=== PATIENT | male | born 1990 | race Caucasian/White ===

== ENCOUNTER 2024-10-13 22:54 | Emergency (ER) | payer MEDICAID ==
[~2024-10-13] VITALS: Ht 165.1 cm; Wt 78.3 kg
[2024-10-13 23:00] VITALS: BP 138/101; PULSE 117; RESP 16; TEMP 98.3; O2SAT 99
== END 2024-10-13 23:51 | disposition left against medical advice (07) ==
LOC: ER 22:55
DX: S61.411A Laceration without foreign body of right hand, initial encounter (principal); W45.8XXA Other foreign body or object entering through skin, initial encounter; Y93.89 Activity, other specified; Y92.89 Other specified places as the place of occurrence of the external cause; Y99.8 Other external cause status; Z53.21 Procedure and treatment not carried out due to patient leaving prior to being seen by health care provider
CPT/HCPCS: A6258; A6449

== ENCOUNTER 2025-04-29 22:18 | Emergency (ER) | payer MEDICAID ==
[~2025-04-29] VITALS: Ht 162.6 cm; Wt 71.8 kg
[2025-04-29 22:20] VITALS: TEMP 97.8
--- NOTE | 2025-04-29 23:03 | Physician Documentation ---
History of Present Illness ~ Chief Complaint: Medical Clearance Stated Complaint: MED CLEARANCE Time Seen by MD: 23:00 Primary Medical Doctor: NONE HPI Patient presents to the emergency room for medical clearance for rehab facility. He endorses methamphetamine use. No complaints Tetanus within 5 years?: No Medication Reconciliation Allergies: Coded Allergies: No Known Allergies (Unverified , 10/13/24) Past Medical History Past Medical History: No Pertinent History Past Surgical History: no surgical history Review of Systems ROS All review of systems negative except as per HPI Physical Exam Vital Signs: Temperature: 97.8, Source: Temporal, Heart Rate: 116, Respiratory Rate: 16, BP: 173/98, Pulse Oximetry: 98, Weight: 71.800 Oxygen Flow Rate: 0 Physical Exam General: Patient is awake, alert, oriented x4 in no acute distress Head: Normocephalic and atraumatic. Eyes: Conjunctival normal. EOMI. PERRL. ENT: Mucous membranes moist. Neck: Supple, trachea is midline. Chest: Clear to auscultation bilaterally without rales, rhonchi, or wheezes. There is no accessory muscle use or retractions. Cardiac: Tachycardic and regular without murmurs, gallops, or rubs. Progress Results/Orders Results/Orders Vital Signs 04/29/25 22:20 Temp 97.8 Pulse 116 Resp 16 B/P (MAP) 173/98 Pulse Ox 98 O2 Flow Rate 0 Medical Decision Making Findings Patient presents to the emergency room for medical clearance to go to rehab facility. He does have mild tachycardia however he does endorse methamphetamine. I do not feel additional labs or imaging is necessary. Departure Disposition: HOME / SELF CARE / HOMELESS Impression: Primary Impression: General medical exam Condition: Stable Discharge Instructions: Medical Screening Exam Additional Instructions: You are medically cleared to go to rehab facility Referrals: NO PRIMARY CARE PROVIDER (PCP) Signature Scribe Signature: No scribe Attestation: The note accurately reflects work and decisions made by me.Popeye Gómez MD 04/29/25 23:03 POPEYE GÓMEZ MD Apr 29, 2025 23:03
[2025-04-29 23:09] VITALS: BP 170/92; PULSE 110; RESP 18; O2SAT 99
[2025-05-01] MEDS ORDERED: NICO-687 TOP (04:05)
== END 2025-04-29 23:11 | disposition home or self-care (01) ==
LOC: ER 22:18
DX: Z00.8 Encounter for other general examination (principal)
CPT/HCPCS: 99282

== ENCOUNTER 2025-07-09 01:41 | Emergency (ER) | payer MEDICAID ==
[~2025-07-09] VITALS: Ht 162.6 cm; Wt 75.2 kg
--- NOTE | 2025-07-09 01:51 | Physician Documentation ---
History of Present Illness ~ Chief Complaint: Medical Clearance Stated Complaint: REQUESTING DETOX Primary Medical Doctor: NONE HPI medical clearance for detox facility, no medical complaints. Tetanus within 5 years?: No Medication Reconciliation Allergies: Coded Allergies: No Known Allergies (Unverified , 10/13/24) Past Medical History Past Medical History: No Pertinent History Past Surgical History: no surgical history Review of Systems All Other Systems at this time: Reviewed and Negative Physical Exam Vital Signs: RN Vital Signs have been reviewed: Yes, Temperature: 98.4, Heart Rate: 108, Respiratory Rate: 18, BP: 171/104, Pulse Oximetry: 98, Weight: 75.180 Oxygen Flow Rate: 0 Physical Exam General: Alert, no apparent distress. Neck: Full range of motion. Respiratory: Lungs clear, no respiratory distress. Extremities: Normal range of motion, no deformity. Neurologic: Oriented x4. Psychiatric: Normal mood and affect. Skin: Normal color, warm and dry. No edema, no ecchymosis. Progress Results/Orders Results/Orders Vital Signs 07/09/25 01:44 Temp 98.4 Pulse 108 Resp 18 B/P (MAP) 171/104 Pulse Ox 98 O2 Flow Rate 0 Medical Decision Making Additional information obtaine: N/A Findings Medically clear for detox facility. Differential Dx:Considerations: Include: Intoxication-Alcohol, Intoxication- Other drug, Substance abuse disorder, Acute delirium, Closed head injury, Fracture(s), Abrasion, Hematoma, Laceration, Alcohol withdrawl syndrom, Encephalopathy, Medically stable Departure Disposition: 01 HOME / SELF CARE / HOMELESS Impression: Primary Impression: General medical exam Discharge Instructions: Medical Screening Exam Referrals: NO PRIMARY CARE PROVIDER (PCP) Education Educated: Patient Educated regarding: diagnosis, treatment, prognosis, need for follow up Signature Scribe Signature: . Attestation: . DANE MCKEON MD Jul 09, 2025 01:51
[2025-07-09 02:03] VITALS: BP 165/99; PULSE 99; RESP 20; TEMP 98.6; O2SAT 99
== END 2025-07-09 02:05 | disposition home or self-care (01) ==
LOC: ER 01:41
DX: Z00.00 Encounter for general adult medical examination without abnormal findings (principal)
CPT/HCPCS: 99282